=== PATIENT | male | born 1990 | race Caucasian/White ===

== ENCOUNTER 2017-04-18 16:26 | Emergency (ER) | payer OTHER, BC ==
[~2017-04-18] VITALS: Ht 188 cm; Wt 86.5 kg
[~2017-04-18 16:26] MED LIST: HYDR50TA94 PO; MEDR4PAK3 PO; TRIA.1%T EX
[2017-04-18 16:27] VITALS: BP 135/66; PULSE 81; RESP 18; TEMP 97.8; O2SAT 100
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
[2017-04-18] MEDS ORDERED: ROBA500T PO (18:29)
[2017-04-18] MEDS ORDERED: IBUP800T23 PO (18:29)
[2017-04-18] MEDS ORDERED: METHOCARBAMOL 500 MG TAB PO ONE (18:30)
[2017-04-18] MEDS ORDERED: IBUPROFEN 800 MG TAB PO ONE (18:30)
== END 2017-04-18 18:59 | disposition home or self-care (01) ==
LOC: NEPK 16:26
DX: S46.812A Strain of other muscles, fascia and tendons at shoulder and upper arm level, left arm, initial encounter (principal); S39.012A Strain of muscle, fascia and tendon of lower back, initial encounter; V43.62XA Car passenger injured in collision with other type car in traffic accident, initial encounter; Y92.414 Local residential or business street as the place of occurrence of the external cause
CPT/HCPCS: 99283

== ENCOUNTER 2017-11-08 16:38 | Emergency (ER) | payer BC ==
[~2017-11-08] VITALS: Ht 185.4 cm; Wt 80.0 kg
[~2017-11-08 16:38] MED LIST changes: -HYDR50TA94 PO; +IBUP1TAB7 PO; -MEDR4PAK3 PO; +ROBA500T PO; -TRIA.1%T EX
[2017-11-08 16:43] VITALS: BP 146/69; PULSE 93; RESP 16; TEMP 98.2; O2SAT 98
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
[2017-11-08] MEDS ORDERED: ZITHTAB PO (18:03)
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
== END 2017-11-08 18:40 | disposition home or self-care (01) ==
LOC: PHEFT 16:38
DX: M54.10 Radiculopathy, site unspecified (principal); H66.92 Otitis media, unspecified, left ear
CPT/HCPCS: 72125; 87081; 87804; 87880; 99284